=== PATIENT | male | born 1980 | race Two or more races ===

== ENCOUNTER 2023-10-18 09:16 | Day surgery (SDC) | payer BC ==
[~2023-10-18 09:16] MED LIST: BUPIVACAINE 0.5 % PF 150 MG/30 ML VIAL ONE; LIDOCAINE HCL/MPF 1% 30 ML VIAL IJ ONE
[2023-10-18] MEDS ORDERED: FAMOTIDINE/PF INJ 20 MG/2 ML VIAL IV ONE (11:35)
[2023-10-18] MEDS ORDERED: FENTANYL PF 250MCG/5ML AMPUL ONE (11:35)
[2023-10-18] MEDS ORDERED: HEPARIN SODIUM, PORCINE 5000 UNITS/1 ML VIAL ONE (11:36)
[2023-10-18] MEDS ORDERED: protAMINE SULFATE 10 MG/ML VIAL IV ONE (11:37)
[2023-10-18] MEDS ORDERED: SEVOFLURANE 250 ML BOTTLE IH ONE (12:05)
[2023-10-18] MEDS ORDERED: ROPIVACAINE HCL 0.5% 5 MG/ML 30ML VIAL ONE (12:24)
== END 2023-10-18 14:50 | disposition home or self-care (01) ==
LOC: DS 09:16
PROVIDERS: ATTEND Surgery Vascular Surgery
DX: N18.6 End stage renal disease (principal); I10 Essential (primary) hypertension; G47.33 Obstructive sleep apnea (adult) (pediatric); Z99.89 Dependence on other enabling machines and devices; Z98.890 Other specified postprocedural states; Z79.899 Other long term (current) drug therapy
CPT/HCPCS: 35903; 36415; 84132; 86850; J0690; J1644; J2405; J2704; J2765; J2795; J3010; J3490; J7030; J2720